=== PATIENT | male | born 1960 | race American Indian/Alaskan Native ===

== ENCOUNTER 2017-06-01 06:48 | Inpatient (IN) | payer OTHER ==
[2017-06-01] MEDS ORDERED: SUBLIMAZE IV ONE (07:37)
[2017-06-01] MEDS ORDERED: ZOFRAN IV ONE (07:38)
--- NOTE | 2017-06-01 07:38 | Emergency Department Report ---
HPI - General Chief Complaint: Abdominal Pain Time Seen by Provider: 06/01/17 07:25 - HPI HPI: Room 3 The patient is a 57-year-old male presenting with a chief complaint of abdominal pain. The patient states yesterday development of a gastric abdominal pain constant in nature. He states pain continued to worsen prompting him to go to his [place] facility for evaluation. At the facility patient had a CT scan which revealed "there is a dilated loop of bowel and a small anterior abdominal wall hernia containing a portion of the loop of small bowel resulting in small bowel obstruction." The [place] physician (Dr. Eric) contacted the [place] of stated that there were no beds available at any of the [place] facilities and subsequently the patient was proved to be sent to [facility] for management/admission. Patient denies nausea vomiting or diarrhea, fever or any other type of pain. The patient gives his pain a score of 7/10 Location: Epigastric Duration: 2 days Quality: Sharp Severity: 7/10 Modifying factors: [see above] Context: [see above] Mode of transportation: [not driving] ED Past Medical Hx - Past Medical History Previous Medical History?: Yes Hx of Cancer: Yes (renal CA status post right nephrectomy) Additional medical history: Prediabetes, gout - Surgical History Hx Appendectomy: Yes Additional Surgical History: Colostomy secondary to "ruptured bowel". Colostomy reversal, left forearm fracture repair. Herniorrhaphy - Family History Family history: no significant - Social History Smoking Status: Former Smoker (none 1 year) Substance Use Type: None (denies illicit drug use), Alcohol (occasional) ED Review of Systems ROS: Stated complaint: SMALL BOWEL OBSTRUCTION Other details as noted in HPI Constitutional: denies: fever Eyes: denies: eye pain ENT: denies: ear pain Cardiovascular: denies: chest pain Gastrointestinal: abdominal pain. denies: nausea, vomiting, diarrhea Genitourinary: denies: dysuria Musculoskeletal: denies: back pain Neurological: denies: headache Physical Exam - Physical Exam Vital Signs: Vital Signs 06/01/17 07:07 Temperature 98.1 F Pulse Rate 73 Respiratory 15 Rate Blood Pressure 152/84 [Left] O2 Sat by Pulse 98 Oximetry Physical Exam: GENERAL: The patient is well-developed well-nourished male lying on stretcher not appearing to be in acute distress. [] HEENT: Normocephalic. Atraumatic. Extraocular motions are intact. Patient has moist mucous membranes. NECK: Supple. Trachea midline CHEST/LUNGS: Clear to auscultation. There is no respiratory distress noted. HEART/CARDIOVASCULAR: Regular. There is no tachycardia. There is no gallop rub or murmur. ABDOMEN: Abdomen is soft, with mild discomfort to palpation midepigastric and umbilical regions. No palpable hernia noted. Patient has normal bowel sounds. There is no abdominal distention. SKIN: There is no rash. There is no edema. There is no diaphoresis. NEURO: The patient is awake, alert, and oriented. The patient is cooperative. The patient has normal speech MUSCULOSKELETAL: There is no evidence of acute injury. ED Course Vital Signs 06/01/17 07:07 Temperature 98.1 F Pulse Rate 73 Respiratory 15 Rate Blood Pressure 152/84 [Left] O2 Sat by Pulse 98 Oximetry - Consultations Consultation #1: 06/01/17 07:[address] Madsen. He requested patient be made nothing by mouth , sent to 3B surgery, receive an NG tube, and Ancef 1 g every 8 hours in addition to IV fluids. Anticipates performing surgery this afternoon ED Medical Decision Making - Lab Data Labs from [place] reveals WBC 11.6 Hemoglobin 14.7 Hematocrit 43.3 Platelets 261 Sodium 134 Potassium 3.9 Chloride 99 CO2 26 BUN 10 Creatinine 1.1 Glucose 143 Calcium 8.5 Total protein 7.9 Albumin 4.5 - Radiology Data Radiology results: report reviewed (CT abdomen and pelvis with IV contrast performed at [place]) CT abdomen and pelvis with IV contrast performed at [place] (read by radiologist) -there is a dilated loop of bowel in a small anterior abdominal wall hernia containing a portion of the loop of small bowel resulting in small bowel obstruction. There is transition at the level of the anterior abdominal wall hernia best demonstrated 1 image 90 series 204 and image 45 series 201. There is moderate proximal small bowel distention. There is a second separate anterior abdominal wall hernia, the more inferior hernia contains only a small portion of the wall ball and does not result in obstruction. There is nonspecific bladder wall thickening. This may be related to incomplete distention. Bladder diverticulum seen arising from the right posterior lateral aspect of the bladder. The wall of the diverticulum is mildly thickened. There is a second bladder diverticulum arising from the anterior aspect of the bladder with a moderately thick wall. Monitoring these lesions recommended secondary to the known risk of development of neoplastic process within diverticula of the bladder. Critical care attestation.: If time is entered above; I have spent that time in minutes in the direct care of this critically ill patient, excluding procedure time. ED Disposition Clinical Impression: Small bowel obstruction, Abdominal hernia Disposition: OP ADMIT IP TO THIS HOSP Is pt being admited?: Yes Does the pt Need Aspirin: No Condition: Fair Referrals: PRIMARY CARE, [Primary Care Provider] - 3-5 Days Time of Disposition: 07:58
[2017-06-01] MEDS ORDERED: NACL 0.9% 1000 ML 1,000 ML IV SCH (08:00)
[2017-06-01] MEDS ORDERED: ANCEF/NS 1 GM/50 ML 1 GM/50 ML BAG IV SCH (08:00)
[2017-06-01] MEDS ORDERED: ceFAZolin 1 GM in NACL 0.9% 20 ML IV SCH (09:00)
[2017-06-01] MEDS ORDERED: ZOFRAN ONE ×2 (09:27→12:21)
[2017-06-01] MEDS ORDERED: SUBLIMAZE ONE ×3 (09:28→12:36)
[2017-06-01] MEDS ORDERED: MARCAINE 0.5% 30 ML INFILTRATI ONE (11:15)
[2017-06-01] MEDS ORDERED: DILAUDID ONE (11:48)
[2017-06-01] MEDS ORDERED: ZEMURON IV ONE (11:48)
[2017-06-01] MEDS ORDERED: XYLOCAINE MPF 2% ONE (11:48)
[2017-06-01] MEDS ORDERED: DIPRIVAN 10 MG/ML IV ONE (11:49)
[2017-06-01] MEDS ORDERED: ANCEF/STERILE WATER 2 GM/20 ML IV NR (12:00)
--- NOTE | 2017-06-01 12:00 | Anesthesia Consultation ---
Anesthesia Consult and Med Hx Date of service: 06/01/17 - Airway Anesthetic Teeth Evaluation: Good ROM Head & Neck: Adequate Mental/Hyoid Distance: Adequate Mallampati Class: Class II Intubation Access Assessment: Probably Good - Pulmonary Exam CTA: Yes - Cardiac Exam Cardiac Exam: RRR - Pre-Operative Health Status ASA Pre-Surgery Classification: ASA3 Proposed Anesthetic Plan: General - Pulmonary Hx Smoking: No Hx Sleep Apnea: No - Cardiovascular System Hx Hypertension: Yes - Central Nervous System Hx Psychiatric Problems: No - Endocrine Hx Non-Insulin Dependent Diabetes: Yes - Other Systems Hx Cancer: Yes (history of kidney ca. partial nephrectomy)
--- NOTE | 2017-06-01 12:01 | Anesthesia Day of Surgery ---
Anesthesia Day of Surgery - Day of Surgery Patient Examined: Yes Patient H&P Reviewed: Yes Patient is NPO: Yes
[2017-06-01] MEDS ORDERED: DECADRON ONE ×2 (12:21→12:59)
[2017-06-01] MEDS ORDERED: NEO SYNEPHRINE/NS Syringe(OR USE) IV ONE (12:30)
[2017-06-01] MEDS ORDERED: NEOSTIGMINE ONE (12:51)
[2017-06-01] MEDS ORDERED: ROBINUL ONE ×2 (12:51)
[2017-06-01] MEDS ORDERED: VERSED IV NR (13:00)
[2017-06-01] MEDS ORDERED: NACL 0.9% 1000 ML 1,000 ML ONE (13:11)
[2017-06-01] MEDS ORDERED: NACL 0.9% IR ONE (13:23)
[2017-06-01] MEDS ORDERED: MARCAINE 0.5% INFILTRATI ONE ×2 (13:24)
[2017-06-01] MEDS: DILAUDID IV PRN ×2 (15:23→20:54)
--- NOTE | 2017-06-01 17:49 | Operative Report ---
PREOPERATIVE DIAGNOSIS: Incisional hernia with small-bowel obstruction, status post 2 abdominal operations in the past. POSTOPERATIVE DIAGNOSIS: Incisional hernia with small-bowel obstruction, status post 2 abdominal operations in the past. PROCEDURES: Exploratory laparotomy, lysis of very extensive adhesions, closure of 2 small defects in the small intestines and colon ,with primary repair and closure of hernia area. The hernia area is barely about 2.5 cm. This was included in the incision of the fascia. ANESTHESIA: General. BLOOD LOSS: Minimal. FINDINGS: The patient had a loop, apparently that has been reduced within the abdominal cavity, is barely about 2.5-3 cm. There is no evidence of any gangrene or ischemia rather concretion of adhesions in the area. We closed the fascia primarily and I was able to put Seprafilm so as not to perform adhesions in the future. DESCRIPTION OF PROCEDURE: With the patient in supine position and after cleansing and draping in the usual fashion, I made an incision over the area of concern that is just below the umbilicus, deep subcutaneous tissue. I was able then to go into the fascia slowly and gingerly making sure not to have any injuries of that area. Lots of dense adhesions were there; these were lysed with sharp and blunt dissection. I had to go further down about 2 cm, so as to have a good look at the area. The adhesions were very dense. There were two small dense in the small intestines each barely about 1 cm. These were closed with interrupted stitches using for that purpose 3-0 Vicryl in 2 rows. I was very much satisfied, had good hemostasis. Then, I checked the area again looking for any abnormalities, none was seen, had to continue lysing the adhesions all around for a good 10 cm all around. I was very much satisfied. The area was then irrigated with sterile normal saline. Then, the wound was closed with #1 Vicryl for the fascia interruptedly after putting a piece of Seprafilm there. After that maneuvering, the skin was then closed with use of lucy and in between some 2 x 2 lesley. Bandages were applied. The patient was then transferred to the recovery room, had a Lobo catheter. We may need to call Urology to see him, he could not void on his own. His is aware of that. I told her this was going on. We will need to keep him in a good 2-4 days with NG suction and go slowly. JOB# [id number] NENA/ALLIE STOUT
--- NOTE | 2017-06-01 17:50 | Post Anesthesia Evaluation ---
- Post Anesthesia Evaluation Patient Participated: Yes Airway Patent: Yes Stable Respiratory Function: Yes Nausea/Vomiting: No Temp > 96.8F: Yes Pain Manageable: Yes Adequeate Hydration: Yes Anesthesia Complications: No
[2017-06-01] MEDS: KCL 20 MEQ in D5NS 0.2% 1,000 ML IV SCH (18:20)
[2017-06-01] MEDS ORDERED: ZOFRAN IV PRN (23:19)
[2017-06-02] MEDS: DILAUDID IV PRN ×7 (00:17→21:24)
[2017-06-02] MEDS: KCL 20 MEQ in D5NS 0.2% 1,000 ML IV SCH ×3 (03:20→23:04)
[2017-06-02] MEDS ORDERED: ATIVAN IV PRN (13:03)
[2017-06-02] MEDS: APRESOLINE IV PRN (21:22)
--- NOTE | 2017-06-02 21:39 | Progress Note ---
Subjective Patient Reports: Positive: no flatus, no bowel movement Narrative: doing OK , no BM , indicated to Pt the findings with extensive adhesions ,the need to keep NG tube , Keep NPO , ambulate , Objective Vital Signs - 12hr 06/02/17 06/02/17 06/02/17 12:58 15:55 19:13 Temperature 97.9 F 99.7 F H 98.9 F Pulse Rate 91 H 91 H 86 Respiratory 18 18 20 Rate Blood Pressure 155/79 170/79 Blood Pressure 156/84 [Left] O2 Sat by Pulse 96 94 Oximetry 06/02/17 21:22 Temperature Pulse Rate 86 Respiratory Rate Blood Pressure 170/79 Blood Pressure [Left] O2 Sat by Pulse Oximetry
[2017-06-03] MEDS: DILAUDID IV PRN ×3 (03:24→15:38)
[2017-06-03] MEDS: APRESOLINE IV PRN (06:02)
--- NOTE | 2017-06-03 12:28 | Consultation ---
History of Present Illness - Reason for Consult Consult date: 06/03/17 - History of Present Illness The patient is a 57-year-old male presenting with a chief complaint of abdominal pain. The patient states yesterday development of a gastric abdominal pain constant in nature. He states pain continued to worsen prompting him to go to his [place] facility for evaluation. At the facility patient had a CT scan which revealed "there is a dilated loop of bowel and a small anterior abdominal wall hernia containing a portion of the loop of small bowel resulting in small bowel obstruction." The [place] physician (Dr. Eric) contacted the [place] of stated that there were no beds available at any of the [place] facilities and subsequently the patient was proved to be sent to [facility] for management/admission. Patient denies nausea vomiting or diarrhea, fever or any other type of pain. previous rt nephrectomy for cancer - [facility] expl lap in past pt had hernia repair by Dr. Espinal with post op retention abd binder ngt uncirc phallus----nurse removed rodriguez at noon per pt A/P retention start flomax if unable to void in hospital, trial in 5-7 days (home with rodriguez) Medications and Allergies Allergies Allergy/AdvReac Type Severity Reaction Status Date / Time No Known Allergies Allergy Verified 06/01/17 07:53 Home Medications Medication Instructions Recorded Confirmed Last Taken Type Allopurinol [Zyloprim] 100 mg PO QDAY 06/01/17 06/01/17 05/31/17 History AtorvaSTATin 1 tab PO DAILY 06/01/17 06/01/17 05/30/17 History Carvedilol [Coreg] 12.5 mg PO BID 06/01/17 06/01/17 06/01/17 05:39 History Losartan [Cozaar] 100 mg PO QDAY 06/01/17 06/01/17 06/01/17 05:39 History amLODIPine [Norvasc] 10 mg PO DAILY 06/01/17 06/01/17 06/01/17 05:39 History Active Meds: Active Medications Hydralazine HCl (Apresoline) 10 mg IV Q4HR PRN PRN Reason: Blood Pressure Last Admin: 06/03/17 06:02 Dose: 10 mg Hydromorphone HCl (Dilaudid) 2 mg IV Q3H PRN PRN Reason: Pain , Severe (7-10) Last Admin: 06/03/17 10:08 Dose: 2 mg Potassium Chloride 20 meq/ (Dextrose/Sodium Chloride) 1,010 mls @ 125 mls/hr IV DIRECT MARLENE Last Admin: 06/02/17 23:04 Dose: 125 mls/hr Lorazepam (Ativan) 0.5 mg IV QHS PRN PRN Reason: Sleep Last Admin: 06/03/17 00:08 Dose: 0.5 mg Ondansetron HCl (Zofran) 4 mg IV Q8H PRN PRN Reason: Nausea And Vomiting Last Admin: 06/02/17 00:18 Dose: 4 mg Exam - Constitutional Vitals: Temp Pulse Resp BP Pulse Ox 97.8 F 101 H 20 173/99 93 06/03/17 11:27 06/03/17 06:02 06/03/17 11:27 06/03/17 11:27 06/03/17 05:20 Results - Labs Labs: Abnormal lab results 06/02/17 06/02/17 06/02/17 Range/Units 07:54 11:57 16:48 POC Glucose 124 H 129 H 134 H (70-105) 06/02/17 Range/Units 21:11 POC Glucose 135 H (70-105)
--- NOTE | 2017-06-03 13:38 | XRay Report ---
SUPINE KUB: History: Small bowel obstruction. The abdominal gas pattern is unremarkable. No masses or organomegaly is identified and there is no gross evidence of free air or fluid. No significant soft tissue calcifications are noted. Surgical changes are also noted. IMPRESSION: No acute process noted.
--- NOTE | 2017-06-03 16:59 | Progress Note ---
Subjective Narrative: doing OK a little flatus , no BM KUB WNL NG drained about 300 cc will keep NPO Objective Vital Signs - 12hr 06/03/17 06/03/17 06/03/17 05:20 06:02 11:27 Temperature 98.9 F 97.8 F Pulse Rate 101 H 101 H Respiratory 18 20 Rate Blood Pressure 169/73 169/73 173/99 O2 Sat by Pulse 93 Oximetry
[2017-06-03 19:34] LABS: BUN/Creatinine Ratio 11; Blood Urea Nitrogen 10 mg/dL (9-20); Calcium 7.6 mg/dL (8.4-10.2); Carbon Dioxide 23 mmol/L (22-30); Glucose 105 mg/dL (75-100)
[2017-06-03 19:35] LABS: Anion Gap 21 mmol/L; Potassium 3.5 mmol/L (3.6-5.0); Sodium 137 mmol/L (137-145)
[2017-06-03] MEDS: DILAUDID IM PRN (23:44)
[2017-06-03] MEDS: ATIVAN IM PRN (23:45)
[2017-06-04] MEDS: DILAUDID IM PRN (04:45)
[2017-06-04] MEDS: DILAUDID IV PRN ×4 (09:56→22:04)
[2017-06-04] MEDS ORDERED: MILK OF MAGNESIA PO ONE (10:00)
[2017-06-04] MEDS ORDERED: D5W/0.45% NACL/KCL 30 MEQ 30 MEQ/1,000 ML BAG IV SCH (10:00)
[2017-06-04] MEDS ORDERED: PROTONIX IV SCH ×2 (10:00→11:00)
[2017-06-04] MEDS: APRESOLINE IV PRN ×2 (10:42→17:25)
--- NOTE | 2017-06-04 16:13 | Progress Note ---
Subjective Patient Reports: Positive: feels better, flatus, no bowel movement, afebrile Narrative: progressive slow improvement ? flatus , no BM ,no nausea . NG off suction abd soft wound clean bandage changed ambulatory to the chair , will cont observation , needs some K ,will F/U . Objective Vital Signs - 12hr 06/04/17 06/04/17 06/04/17 04:38 07:44 11:35 Temperature 98.5 F 98.6 F 98.9 F Pulse Rate 105 H 104 H 102 H Respiratory 22 20 20 Rate Blood Pressure 176/90 Blood Pressure 169/89 134/83 [Left] O2 Sat by Pulse 97 96 93 Oximetry 06/04/17 16:00 Temperature 98.8 F Pulse Rate 102 H Respiratory 18 Rate Blood Pressure Blood Pressure 165/88 [Left] O2 Sat by Pulse 94 Oximetry - Labs 06/03/17 18:41 Diabetes panel 06/03/17 Range/Units 18:41 Sodium 137 (137-145) mmol/L Potassium 3.5 L (3.6-5.0) mmol/L Chloride 97.0 L (98-107) mmol/L Carbon Dioxide 23 (22-30) mmol/L BUN 10 (9-20) mg/dL Creatinine 0.9 (0.8-1.5) mg/dL Glucose 105 H (75-100) mg/dL Calcium 7.6 L (8.4-10.2) mg/dL Calcium panel 06/03/17 Range/Units 18:41 Calcium 7.6 L (8.4-10.2) mg/dL Pituitary panel 06/03/17 Range/Units 18:41 Sodium 137 (137-145) mmol/L Potassium 3.5 L (3.6-5.0) mmol/L Chloride 97.0 L (98-107) mmol/L Carbon Dioxide 23 (22-30) mmol/L BUN 10 (9-20) mg/dL Creatinine 0.9 (0.8-1.5) mg/dL Glucose 105 H (75-100) mg/dL Calcium 7.6 L (8.4-10.2) mg/dL Adrenal panel 06/03/17 Range/Units 18:41 Sodium 137 (137-145) mmol/L Potassium 3.5 L (3.6-5.0) mmol/L Chloride 97.0 L (98-107) mmol/L Carbon Dioxide 23 (22-30) mmol/L BUN 10 (9-20) mg/dL Creatinine 0.9 (0.8-1.5) mg/dL Glucose 105 H (75-100) mg/dL Calcium 7.6 L (8.4-10.2) mg/dL
[2017-06-04] MEDS: ATIVAN IM PRN (22:53)
[2017-06-05] MEDS: DILAUDID IV PRN ×4 (04:20→21:56)
[2017-06-05] MEDS: [UNRECOGNIZED DRUG - OTHER] IV SCH ×2 (04:21→17:21)
[2017-06-05] MEDS: D5 IV SCH ×2 (04:21→17:21)
[2017-06-05] MEDS: KCL IV SCH ×2 (04:21→17:21)
[2017-06-05] MEDS ORDERED: MILK OF MAGNESIA PO ONE (05:27)
[2017-06-05 06:17] LABS: Alanine Aminotransferase 15 units/L (7-56); Albumin/Globulin Ratio 0.7 %; Alkaline Phosphatase 92 units/L (35-129); Anion Gap 21 mmol/L; BUN/Creatinine Ratio 17; Blood Urea Nitrogen 15 mg/dL (9-20); Calcium 8.3 mg/dL (8.4-10.2); Carbon Dioxide 20 mmol/L (22-30); Glucose 134 mg/dL (75-100); Potassium 4.2 mmol/L (3.6-5.0); Sodium 137 mmol/L (137-145); Total Protein 7.3 g/dL (6.3-8.2)
--- NOTE | 2017-06-05 09:54 | XRay Report ---
FINAL REPORT EXAM: XR ABDOMEN 1V AP HISTORY: ngt REMOVAL TECHNIQUE: 2 views of the abdomen. PRIORS: None currently available. FINDINGS: Bowel gas appearance is nonspecific and non-distended. There is no pneumoperitoneum. There is no air fluid level. There is no obstructive pattern. Mild stool is present. There are no suspicious calcifications overlying the renal shadows. Pelvic phleboliths. Degenerative changes are present in the spine and hips. Surgical artifacts are present within the right upper quadrant, right lateral abdomen, left lower quadrant and left pelvis subcutaneous regions. IMPRESSION: Nonspecific nonobstructive bowel gas pattern.
[2017-06-05] MEDS: PROTONIX IV SCH ×2 (10:32→21:57)
--- NOTE | 2017-06-05 19:14 | Progress Note ---
Subjective Patient Reports: Positive: feels better, pain is less, flatus, bowel movement Narrative: Doing fine good BM , ambulatory , on Cl liquids , home in AM . Objective Vital Signs - 12hr 06/05/17 06/05/17 13:16 15:14 Temperature 98 F 98.7 F Pulse Rate 92 H 98 H Respiratory 18 18 Rate Blood Pressure 170/107 Blood Pressure 187/90 [Left] O2 Sat by Pulse 96 97 Oximetry - Labs 06/05/17 05:36 Diabetes panel 06/05/17 Range/Units 05:36 Sodium 137 (137-145) mmol/L Potassium 4.2 (3.6-5.0) mmol/L Chloride 100.0 (98-107) mmol/L Carbon Dioxide 20 L (22-30) mmol/L BUN 15 (9-20) mg/dL Creatinine 0.9 (0.8-1.5) mg/dL Glucose 134 H (75-100) mg/dL Calcium 8.3 L (8.4-10.2) mg/dL AST 14 (5-40) units/L ALT 15 (7-56) units/L Alkaline Phosphatase 92 (35-129) units/L Total Protein 7.3 (6.3-8.2) g/dL Albumin 3.0 L (3.9-5) g/dL Calcium panel 06/05/17 Range/Units 05:36 Calcium 8.3 L (8.4-10.2) mg/dL Albumin 3.0 L (3.9-5) g/dL Pituitary panel 06/05/17 Range/Units 05:36 Sodium 137 (137-145) mmol/L Potassium 4.2 (3.6-5.0) mmol/L Chloride 100.0 (98-107) mmol/L Carbon Dioxide 20 L (22-30) mmol/L BUN 15 (9-20) mg/dL Creatinine 0.9 (0.8-1.5) mg/dL Glucose 134 H (75-100) mg/dL Calcium 8.3 L (8.4-10.2) mg/dL Adrenal panel 06/05/17 Range/Units 05:36 Sodium 137 (137-145) mmol/L Potassium 4.2 (3.6-5.0) mmol/L Chloride 100.0 (98-107) mmol/L Carbon Dioxide 20 L (22-30) mmol/L BUN 15 (9-20) mg/dL Creatinine 0.9 (0.8-1.5) mg/dL Glucose 134 H (75-100) mg/dL Calcium 8.3 L (8.4-10.2) mg/dL Total Bilirubin 0.60 (0.1-1.2) mg/dL AST 14 (5-40) units/L ALT 15 (7-56) units/L Alkaline Phosphatase 92 (35-129) units/L Total Protein 7.3 (6.3-8.2) g/dL Albumin 3.0 L (3.9-5) g/dL
[2017-06-06] MEDS: ATIVAN IM PRN (00:02)
[2017-06-06] MEDS: APRESOLINE IV PRN ×2 (00:39→06:43)
[2017-06-06] MEDS: DILAUDID IV PRN ×4 (03:15→16:43)
[2017-06-06] MEDS: D5 IV SCH (05:10)
[2017-06-06] MEDS: [UNRECOGNIZED DRUG - OTHER] IV SCH (05:10)
[2017-06-06] MEDS: KCL IV SCH (05:10)
[2017-06-06] MEDS: PROTONIX IV SCH ×2 (08:38→10:00)
--- NOTE | 2017-06-06 13:59 | Progress Note ---
Subjective Patient Reports: Positive: pain is less, flatus, bowel movement Narrative: doing excellent 2 BMs tday ,home today BTO in 10 days Objective Vital Signs - 12hr 06/06/17 06/06/17 06/06/17 03:15 03:45 05:05 Temperature Pulse Rate 89 Respiratory 20 16 20 Rate Blood Pressure 187/104 O2 Sat by Pulse 97 Oximetry 06/06/17 06/06/17 06:43 08:00 Temperature 98.2 F Pulse Rate 89 90 Respiratory 19 Rate Blood Pressure 187/104 159/86 O2 Sat by Pulse 97 Oximetry - Labs 06/05/17 05:36
[2017-06-06 17:04] VITALS: BP 173/88
--- NOTE | 2017-06-08 01:41 | Discharge Summary ---
FINAL DIAGNOSIS: Recurrent incisional hernia with small-bowel obstruction. POSTOPERATIVE DIAGNOSIS: Recurrent incisional hernia with small-bowel obstruction. A touch of diabetes mellitus. HISTORY: This man was seen in the ER on the day of his admission, with severe pain to the mid abdomen. He was found to have hernia, apparently he gives a history of abdominal exploration many years back and CT scan was done outside that showed evidence of hernia. The defect is about 4 cm. PHYSICAL EXAMINATION: GENERAL: A well preserved black male. He is in no distress. HEAD AND NECK: Essentially negative. The patient wears eye glasses. CHEST: Essentially clear to me. HEART: The heart sounds normal. ABDOMEN: Protuberant, soft. Severe tenderness in the mid abdomen along the scar that goes all the way from the superior mid abdomen to the lower abdomen. EXTREMITIES: Showed no evidence of edema. HOSPITAL COURSE: The patient was taken to the operating room on the day of his admission, where he underwent exploratory laparotomy with release of small-bowel obstruction. He had the colon that showed some external adhesions. These were lysed and and then the area was closed with interrupted stitches of 3-0 Vicryl reinforced with the same for the seromuscular layer. Then, the wound was closed. I left a small 2 x 2 and a bandage. The patient did extremely well. He had NG tube to suction. He had good bowel movements on the third postop day, passing flatus. At that point, he was discharged home on 06/06/2017, to be seen in my office in 10 days, to call me if has any problem. He may take extra strength Tylenol for pain. I asked him to take milk of magnesia for constipation. To continue with his low sugar diet for the coming 1 or 2 days and to advance that slowly to a regular diet. Follow up to see me in my office. JOB# [id number] NENA/ALLIE
--- NOTE | 2017-07-17 12:44 | History and Physical Report ---
HISTORY OF PRESENT ILLNESS: This man came via the Emergency Room, referred from [place] because of severe abdominal pain, nausea and vomiting and abdominal distention. He gives a history of hernia in the past. This was seen on the CAT scan as well. PHYSICAL EXAMINATION: GENERAL: A well-preserved obese black male, who is in no distress, some pain to the epigastric area. HEAD AND NECK: Negative. NECK: Supple. CHEST: Essentially clear. HEART: Sounds normal. ABDOMEN: Protuberant, soft. Moderate tenderness in the epigastric aspect with severe tenderness over an area that is about 10 x 10 cm. EXTREMITIES: Showed no evidence of any edema. IMPRESSION: Recurrent incisional hernia for repair. The patient is aware of that. It was done the day of his admission. JOB# [id number] NENA/ALLIE
== END 2017-06-06 19:00 | disposition home or self-care (01) | DRG 337 ==
LOC: ED 06:48 → 3B-SURG 07:41
PROVIDERS: ADMIT Surgery; ATTEND Surgery
PROC: 0WQF0ZZ Repair Abdominal Wall, Open Approach (ICD-10-PCS; principal; 2017-06-01)
PROC: 0DNW0ZZ Release Peritoneum, Open Approach (ICD-10-PCS; 2017-06-01)
DX: K43.0 Incisional hernia with obstruction, without gangrene (principal); Z87.891 Personal history of nicotine dependence; I10 Essential (primary) hypertension; E11.9 Type 2 diabetes mellitus without complications
CPT/HCPCS: 36415; 74000; 80048; 80053; 82962; 96374; 96375; C9113; J0360; J0690; J1100; J1170; J2060; J2250; J2370; J2405; J2704; J2710; J3010; J3480; J7030